=== PATIENT | male | born 1995 | race Caucasian/White ===

== ENCOUNTER 2024-02-04 12:12 | Emergency (ER) | payer SELFPAY ==
[2024-02-04 12:27] VITALS: BP 116/77; PULSE 85; RESP 18; TEMP 98.3; BMI 23.3
[2024-02-04] MEDS ORDERED: BACITRACIN ZINC 15 GM TUBE TOPICAL OINTMENT ONE (13:13)
== END 2024-02-04 13:36 | disposition home or self-care (01) ==
LOC: JER 12:12 → JERFT 12:12
DX: Z48.02 Encounter for removal of sutures (principal)
CPT/HCPCS: 99281-25